=== PATIENT | male | born 1945 | race Caucasian/White ===

== ENCOUNTER 2020-05-15 11:56 | Outpatient (CLI) | payer MEDICARE, OTHER, SELFPAY ==
--- NOTE | 2020-05-16 07:44 | WPDSIXMINUTE ---
Six Minute Walk This is a 6 minutes walk test. The test was performed and interpreted in accordance with the 2014 ERS/ATS task force guidelines. Findings: The patient's resting room air oxygen saturation measured by pulse oximetry was 92% and her heart rate was 87 bpm. Patient ambulated for 396 meters and oxygen saturation remained 92 to 97%. Heart rate at the end of the study was 120 bpm. There are no prior studies for comparison.
--- NOTE | 2020-05-16 07:45 | P.PCNPFT_ITS ---
PFT Interpretation This is a pulmonary function test with pre and post-bronchodilator spirometry, plethysmography and diffusing capacity. The test was performed and results interpreted in accordance with the 2019 and 2005 ATS/ERS Task Force guidelines respectively using the Chriss/Polnery reference equations. Findings: Spirometry: The contour in the end of the inspiratory and expiratory flow tracing are normal. The pre bronchodilator FVC is 3.28 L, 73% predicted. The pre bronchodilator FEV1 it is 2.32 L, 79% predicted. The FEV1: FVC ratio is 71%. The post bronchodilator FVC is 3.37 L, representing a 3% increase. The post bronchodilator FEV1 is 2.54 L, representing a 9% increase. Plethysmography: The total lung capacity is 5.50 L, 80% predicted. The f unctional residual capacity is 2.28 L, 66% predicted. The residual volume is 1.98 L, 71% predicted. Diffusing capacity: The absolute diffusion capacity is 22.4, 87% predicted. The diffusing capacity corrected for alveolar volume is 4.08, 118% predicted. Impression: The spirometry is normal without evidence of an obstructive abnormality. There is no significant improvement after inhaling a single dose of albuterol. The lung volumes are normal. The diffusing capacity is normal. There are no prior studies for comparison
== END 2020-05-15 11:57 | disposition home or self-care (01) ==
PROVIDERS: PCP Internal Medicine; Visit Provider Internal Medicine Pulmonary Disease
DX: R06.00 Dyspnea, unspecified (principal)
CPT/HCPCS: 94060; 94618; 94726; 94729